=== PATIENT | male | born 1935 | race Caucasian/White ===

== ENCOUNTER 2018-06-26 12:32 | Inpatient (IN) | payer MEDICARE ==
[~2018-06-26] VITALS: Ht 172.7 cm; Wt 126.2 kg
[~2018-06-26 12:32] MED LIST: ABAT250V; ALBU90OI INH; AMIO200 PO; ASPI81CH PO; ATOR20 PO; ATROPINE 1%; Alphagan P 5ML5 ML BOTHEYES; Artificial Tear15 M6 BOTHEYES; Atropine Su0.1 MG/ML LEFTEYE; B-1100 MG PO; CLARITIN10 MG PO; CLOP75 PO; COUGHTAB200 MG PO; D3-20002000 UNIT PO; DAILY VALUE1 EACH PO; DEEP SEA44 ML; DOCU100 PO; DULO60 PO; ETOD400 PO; FISH1000; FLUT44OIA; FURO40 PO; Fish Oil 1,0001 EAC3 PO; Flonase 0.05% N16 GM; GAVILAX17 GM PO; GENTEAL TEARS S10 GM BOTHEYES; GLUCOSAMINE CH1 EAC1 PO; HYDACE10B PO; HYDHCL25 PO; HYDPAM25 PO; Hair, Skin & N1 EACH PO; KETO120T TOP; KETO15TC TOP; LATA.005SO BOTHEYES; LISI5 PO; LORA1SY PO; Lacri-Lube S.O3.5 GM BOTHEYES; MELA3 PO; MELATONIN10 M2 PO; METO50 PO; MIRT30 PO; MORP15ER PO; Morphine Sulfat15 MG PO; NAPR500 PO; OFLO.3OPSO LEFTEYE; OMEP20ER PO; OMEPRAZOLE MAGN20 MG PO; OXYACE5T PO; OXYC10ER PO; OXYC10TA19 PO; OXYM.05NI; Oxycodone HCl20 M1 PO; PIRO10 PO; POTA10T PO; POTCHL10ER PO; PRAZ1 PO; PRED1SU LEFTEYE; PYRI100 PO; SENN187 PO; TAMS.4ER PO; TIMO.5OPSO BOTHEYES; TRAZ50 PO; VENL150ER PO; VENL75ER PO; VITAMIN D35000 UNIT PO; Vancocin HCl125 MG; ZIOPTAN 0.00151 EACH OP; ZOLP10 PO; [UNRECOGNIZED DRUG - CODE]; [UNRECOGNIZED DRUG - CODE]; [UNRECOGNIZED DRUG - CODE] LEFTEYE; [UNRECOGNIZED DRUG - OTHER]
[2018-06-26 13:00] LABS: Calcium, Ionized (POC) 1.14 mmol/L (1.10-1.46); Chloride (POC) 105 mmol/L (98-108); Creatinine (POC) 0.9 mg/dL (0.8-1.3); Glucose (ISTAT POC) 158 mg/dL (70-99); Potassium (POC) 4.1 mmol/L (3.5-5.5); Sodium (POC) 141 mmol/L (135-148); Total CO2 (POC) 22 mmol/L (21-32)
[2018-06-26 13:12] LABS: BASOPHILS ABSOLUTE AUTO 0.11 K/mm3 (0.00-0.23); BASOPHILS PERCENT AUTO 1 % (0-2); EOSINOPHILS ABSOLUTE AUTO 0.63 K/mm3 (0.00-0.68); EOSINOPHILS PERCENT AUTO 5 % (0-6); Hematocrit 45.1 % (37.0-53.0); Hemoglobin 14.8 g/dL (13.5-17.5); IMMATURE GRAN ABSOLUTE AUTO 0.13 K/mm3 (0.00-0.10); IMMATURE GRAN PERCENT AUTO 1 % (0-1); LYMPHOCYTES ABSOLUTE AUTO 2.24 K/mm3 (0.84-5.20); LYMPHOCYTES PERCENT AUTO 18 % (21-46); MONOCYTES ABSOLUTE AUTO 0.83 K/mm3 (0.16-1.47); MONOCYTES PERCENT AUTO 7 % (4-13); Mean Corpuscular HGB 30.6 pg (26.0-34.0); Mean Corpuscular HGB Conc 32.8 g/dL (31.5-36.5); Mean Corpuscular Volume 93 fL (80-100); Mean Platelet Volume 9.7 fL (9.1-12.4); NEUTROPHILS ABSOLUTE AUTO 8.71 K/mm3 (1.96-9.15); NEUTROPHILS PERCENT AUTO 69 % (41-73); Platelet Count 196 K/mm3 (150-400); RDW Coefficient Variation 12.4 % (11.7-14.2); RDW Standard Deviation 42.9 fL (35.1-46.3); Red Blood Cell Count 4.84 M/mm3 (4.30-5.90); White Blood Cell Count 12.65 K/mm3 (4.00-11.30)
[2018-06-26 13:13] LABS: Alanine Aminotransfer (ALT/SGP 11 U/L (12-78); Albumin, Blood 3.6 g/dL (3.4-5.0); Albumin/Globulin Ratio 0.9 (0.8-1.8); Alk Phos 89 U/L (50-136); Anion Gap 8 mmol/L (6-16); Aspartate Aminotrans (AST/SGOT 19 U/L (12-37); Blood Urea Nitrogen 16 mg/dL (8-24); Bun/Creatinine Ratio 16.7 (12.0-20.0); CO2, Blood 25 mmol/L (21-32); Calcium, Blood 8.9 mg/dL (8.5-10.1); Chloride, Blood 108 mmol/L (98-108); Creatinine, Blood 0.96 mg/dL (0.60-1.20); Globulin, Blood 4.2 g/dL (2.2-4.0); Glomerular Filtration Rate >60 (60-); Glucose, Blood 154 mg/dL (70-99); Potassium, Blood 4.2 mmol/L (3.5-5.5); Sodium, Blood 141 mmol/L (136-145); Total Protein, Blood 7.8 g/dL (6.4-8.2)
[2018-06-26 16:18] LABS: International Normalized Ratio 0.98; Prothrombin Time Results 10.4 Sec (9.7-11.5)
--- NOTE | 2018-06-26 16:47 | NUR ---
NURSING PCU DAYSHIFT: Assumed care of pt at approx 1545. Arrived from ER via gurney accompanied by RN. Xfer w/SBA to unit bed. Denies any pain/discomfort. Skin is fragile w/no breakdown noted. LE's are cool, good cap refill, c/o BLE numbness/tingling. Tele in place, NSR w/first degree and BBB, occ PVC's, no c/o CP/pressure, HTN, no noted edema. L/S w/scattered I/E wheezes t/o, coarse in the upper lobes, respirations regular, O2 sat stable on RA, occ cough producing thick/white sputum. Abd SNT, BT+, voiding w/o difficulty per pt. PIV x2, amiodarone gtt infusing at 33.3mls/hr (1mg/kg/min). No s/s of acute distress at this time. Pt currently sitting on edge of bed speaking w/yarn salvager. Orders reviewed, hep gtt to be initiated. Call light remains in reach, cont to monitor until rpt is given to NOC RN.
[2018-06-26] MEDS ORDERED: DORZOLAMIDE-TI1 EACH BOTHEYES (16:56)
[2018-06-26] MEDS ORDERED: LIDOCAINE1 EACH TOP (17:05)
[2018-06-26] MEDS ORDERED: DESENEX43 GM TOP (17:08)
[2018-06-26] MEDS ORDERED: ZINC15 PO (17:09)
[2018-06-26] MEDS ORDERED: OXYM.05NI (17:12)
[2018-06-26] MEDS ORDERED: Percocet 5-3251 EACH PO (17:15)
[2018-06-26] MEDS ORDERED: GAVILAX17 GM PO (17:17)
[2018-06-26] MEDS ORDERED: PSEU120ER PO (17:19)
[2018-06-26] MEDS ORDERED: ASPERCREME1 EACH TOP (17:27)
[2018-06-26] MEDS ORDERED: ZIOPTAN 0.00151 EACH BOTHEYES (17:30)
[2018-06-26 19:07] LABS: Creatine Kinase MB Index 2.8 (0.0-4.0); Troponin I 0.309 ng/mL (0.000-0.040)
--- NOTE | 2018-06-26 20:14 | NUR ---
ASSUMED CARE - NOC SHIFT Patient verbalizes that [facility] and was brought into [facility] today because the [facility] is 'slacking' on being able to care for his cardiac condition. Patient alert and oriented. Patient sitting up on side of unit bed. L/S clear to wheeze and coarseness ausculated in bilateral bases. Resp E/U on room air. Patient has occassional cough. Patient reports left shoulder pain from laying on arm and trying to keep is strait due to IV 'beeping'. Patient medicated per EMAR. Patient denies any chest pain at this time. HR remains NSR with 1 degree & BBB in the 80's. No acute distress noted. Patient hypertensive - medicated per EMAR. Patient states he has already had PNA vaccination and refuses at this time - will clear from orders. Amniodoroen infusing at 16.7 mls/hr; heparin at 23.4 ml/hr and NS running at 150ml/hr per EMAR. Will continue to monitor.
--- NOTE | 2018-06-26 22:25 | NUR ---
PATIENT REQUESTED CPAP APPLIED - APPLIED CPAP. PATIENT CURRENTLY SLEEPING WITH CPAP AND CONTINOUS BIOX IN PLACE.
[2018-06-27 01:12] LABS: Creatine Kinase MB 1.8 ng/mL (0.0-3.6); Creatine Kinase MB Index 1.2 (0.0-4.0); Troponin I 0.357 ng/mL (0.000-0.040)
[2018-06-27 04:03] LABS: BASOPHILS PERCENT AUTO 1 % (0-2); EOSINOPHILS ABSOLUTE AUTO 1.15 K/mm3 (0.00-0.68); EOSINOPHILS PERCENT AUTO 12 % (0-6); Hematocrit 39.2 % (37.0-53.0); IMMATURE GRAN ABSOLUTE AUTO 0.12 K/mm3 (0.00-0.10); IMMATURE GRAN PERCENT AUTO 1 % (0-1); LYMPHOCYTES ABSOLUTE AUTO 2.31 K/mm3 (0.84-5.20); LYMPHOCYTES PERCENT AUTO 25 % (21-46); MONOCYTES ABSOLUTE AUTO 0.74 K/mm3 (0.16-1.47); MONOCYTES PERCENT AUTO 8 % (4-13); Mean Corpuscular HGB 31.3 pg (26.0-34.0); Mean Corpuscular HGB Conc 33.2 g/dL (31.5-36.5); Mean Corpuscular Volume 94 fL (80-100); Mean Platelet Volume 9.7 fL (9.1-12.4); NEUTROPHILS ABSOLUTE AUTO 4.99 K/mm3 (1.96-9.15); NEUTROPHILS PERCENT AUTO 53 % (41-73); Platelet Count 184 K/mm3 (150-400); RDW Coefficient Variation 12.5 % (11.7-14.2); RDW Standard Deviation 43.5 fL (35.1-46.3); Red Blood Cell Count 4.16 M/mm3 (4.30-5.90); White Blood Cell Count 9.41 K/mm3 (4.00-11.30)
[2018-06-27 04:24] LABS: Alanine Aminotransfer (ALT/SGP 10 U/L (12-78); Albumin, Blood 2.8 g/dL (3.4-5.0); Albumin/Globulin Ratio 0.8 (0.8-1.8); Alk Phos 71 U/L (50-136); Anion Gap 7 mmol/L (6-16); Aspartate Aminotrans (AST/SGOT 23 U/L (12-37); Bilirubin, Total 0.9 mg/dL (0.1-1.0); Blood Urea Nitrogen 16 mg/dL (8-24); Bun/Creatinine Ratio 20.5 (12.0-20.0); CO2, Blood 24 mmol/L (21-32); Calcium, Blood 8.1 mg/dL (8.5-10.1); Chloride, Blood 110 mmol/L (98-108); Cholesterol 86 mg/dL (50-200); Creatinine, Blood 0.78 mg/dL (0.60-1.20); Globulin, Blood 3.6 g/dL (2.2-4.0); Glomerular Filtration Rate >60 (60-); Glucose, Blood 106 mg/dL (70-99); Potassium, Blood 4.2 mmol/L (3.5-5.5); Sodium, Blood 141 mmol/L (136-145); Total Protein, Blood 6.4 g/dL (6.4-8.2); Triglycerides 85 mg/dL (30-160)
--- NOTE | 2018-06-27 05:45 | NUR ---
PCU NOC SHIFT SUMMARY PATIENT REMAINED ALERT AND ORIENTED TO SELF, T/O SHIFT - CONFUSED TO LOCATION AT TIMES-REORIENTED PRN. PATIENT PULLED IV AND CARDIAC LEADS OFF ONE TIME LAST NIGHT - NEW IV STARTED. AMNIO, HEP & NS CONTINUED T/O SHIFT PER EMAR. PATIENT REPORTED THAT HE'S HAD MULTIPLE FALLS AT HOME. LEFT ARM, SHOULDER, ELBOW AND WRIST NOTED TO BE SWOLLEN AND PAINFUL WITH MOVEMENT OR TOUCH. PATIENT SLEPT FOR APPROX 4 HOURS DURING THE SHIFT. TOOK MEDICATIONS WELL WITH WATER. PATIENT KEPT NPO AFTER MIDNIGHT PENDING POSSIBLE ANGIOGRAM THIS AM. PATIENT DENIED ANY CHEST PAIN T/O SHIFT AND REMAINED SINUS TO SINUS RICK WITH 1ST DEGREE AND BBB. NO ACUTE CHANGES NOTED. PATIENT HYPERTENSIVE T/O SHIFT AND NOTED THAT TROPONIN REMAINS ELEVATED. WILL CONTINUE TO MONITOR AND REPORT OFF TO DAYSHIFT RN.
--- NOTE | 2018-06-27 05:56 | NUR ---
CHARGE NURSE TOOK PATIENTS HOME MEDICATIONS TO PHARMACY
--- NOTE | 2018-06-27 08:00 | NUR ---
PT PLEASANT COOP A/O DENIES ALL EXCEPT GENERALIZED PAIN 07/13. H/R REG, NO MURMER NOTED. PER TELE: SINUS RICK AT 59. WITH BBB. BT X4 . LAST BM NOTKNOWN BY PT. VOIDS URINAL. SBA TO BSC. BED IN LWO POSITION, CALL LITE IN REACH,C ALLS APPROP
--- NOTE | 2018-06-27 09:40 | NUR ---
PT GOING TO [facility].. NOW.
--- NOTE | 2018-06-27 10:06 | NUR ---
0900: PER DR LITTLEJOHN. STOP HEPARIN. DONE
--- NOTE | 2018-06-27 11:00 | NUR ---
DR LITTLEJOHN CALLED STOP HEPARIN, DONE.
--- NOTE | 2018-06-27 11:30 | NUR ---
PT RETURNED TO ROOM. Kaci GURROLA/Alejandra RN STATES AMIODORONE AND IVF STOPPED. L RADIAL ACCESS. 12 CC AIR REPORTED TO KEEP FROM BLEEDING. BLOOD AROUND TR BAND NOTED. 1 MM HOLE ACCESSPOINT NOTED UNDER BAND. NO CURRENT BLEEDING NOTED. NO HEMATOMA PROXIMAL TO BAND NOTED. NO BRUIDING. TENDERNESS. PT STATES SOME PAIN ON LEFT ARM TO SHOULDER FROM PRIOR INJURY. PT VERBALIZED NO DISCOMFORT IN HAND, FEELING NOTED IN ALL FINGERS, REPORTS NO NUMBNESS NOTED. CAP REFILL <3 SEC. FOLLOW. VSS.
--- NOTE | 2018-06-27 12:04 | NUR ---
I entered room to find patient resting in bed with his eyes shut. He opened his eyes quickly at the sound of his name. Patient said that he was very tired and had an annoying cough. I asked patient about his current concerns and he referred back to his annoying cough. I facilitated a family/life review, explored patient's belief system and provided prayer. I provided a brief visit because patient was nodding off. Patient thanked me for the visit and showed signs of continued peace.
--- NOTE | 2018-06-27 13:05 | NUR ---
DR LITTLEJOHN CALLED WILL WRITE ORDERS/ OKAY STOP IVF.
--- NOTE | 2018-06-27 15:29 | NUR ---
PT C/O PAIN, CALLED DR FOR MED REQUEST. OKAYED PERCOCET 5/325 Q6P ORAL
--- NOTE | 2018-06-27 16:13 | NUR ---
1330 2 HRS POST ANGIO. STARTED TAKING AIR FROM TR BAND. NO LEAKING NOTED. NO FRESH BLEEDING, NO HEMATOMA NOTED. 1600 9 CC AIR OUT SO FAR. NO BLELEDING NOTED. NO HEMATOMA NOTED. OLD DRIED BLOOD ABOUT SAME AROUND TR BAND. PT CONTINUES TO HAVE FEELING IN HANDS. NOW WARM. NO OTHER CONCERNS AT THIS TIME.
--- NOTE | 2018-06-27 18:30 | NUR ---
1700 TR BAND FULLY UNINFLATED. NO BLEEDING NOTED. NO HEMATOMA. PT VERBALIZED FEELING IN ALL EXT. LEAVE ON 1 HR AND CONTINUE MONITOR 1815 TR BAND REMOVED. CLEANED SITE, PLACED TEGADERM CLEAR DSG OVER SITE. NO BELEEDING NOTED. NO BRUISING NOTED. LIGHT PUFFINESS NOTED AFTER BAND OFF. QHITE ARM BOARD REPLACED AFTER CLEANING ARM. ADVISED PT NO LIFTING, PULLING, PUSHING TODAY.
--- NOTE | 2018-06-27 18:34 | NUR ---
PT PLEASANT TODAY. DID ANGIO THIS AM. BACK FROM H/C 1130. NO STENTS PLACED. ARM BAND REMOVED AT 181. NO BLEEDING NOTED. TEGADERM PLACED AND PT ADVISED NO MOVEMENT, PUSHING, PULLING LIFTING. PT VERBALIZED UNDERSTANDING. WHITE ARM BOARD IN PLACE. VSS/ NO OTHER CONCERNS AT THIS TIME. BED IN LOW POSITION,C ALL LITE IN REACH, CALLS APPROP
--- NOTE | 2018-06-27 21:27 | NUR ---
ASSUMED CARE - PCU NOC SHIFT PATIENT ALERT AND ORIENTED TO SELF, LOCATION AND DATE OF . PATIENT CONFUSED TO CORDS/LINES AND SITUATIONS AT TIMES -REORIENTS AND REDIRECTS EASILY. LEFT WRIST RADIAL SITE NOTED - NO HEMATOMA OR BLEEDING. TEGARDERM DRESSING IN PLACE C/D/I, ARM BOARD IN PLACE & PATIENT EDUCATED TO ARM BOARD POST PCI INSTRUCTIONS. PATIENT GIVEN BATH AT BEDSIDE IN CHAIR. YEAST NOTED IN GROIN, UNDER ABDOMIN FOLD AND UNDER ARM PITS - CLEANED, DRYED AND NYSTATIN APPLIED LIBERALLY. RESP E/U AT REST; DYSPNEA NOTED UPON EXCERTION - PATIENT REMAINS ON ROOM AIR. PATIENTS HR SINUS TO SINUS RICK WITH FIRST DEGREE BBB IN THE 50-60'S. VSS. NO ACUTE DISTRESS NOTED AND PATIENT DENIES ANY CHEST PAIN OR PRESSURE. [facility]
[2018-06-28 03:59] LABS: BASOPHILS ABSOLUTE AUTO 0.09 K/mm3 (0.00-0.23); BASOPHILS PERCENT AUTO 1 % (0-2); EOSINOPHILS ABSOLUTE AUTO 1.01 K/mm3 (0.00-0.68); EOSINOPHILS PERCENT AUTO 11 % (0-6); Hematocrit 39.3 % (37.0-53.0); Hemoglobin 13.1 g/dL (13.5-17.5); IMMATURE GRAN ABSOLUTE AUTO 0.11 K/mm3 (0.00-0.10); IMMATURE GRAN PERCENT AUTO 1 % (0-1); LYMPHOCYTES ABSOLUTE AUTO 2.17 K/mm3 (0.84-5.20); LYMPHOCYTES PERCENT AUTO 24 % (21-46); MONOCYTES ABSOLUTE AUTO 0.69 K/mm3 (0.16-1.47); MONOCYTES PERCENT AUTO 8 % (4-13); Mean Corpuscular HGB 30.8 pg (26.0-34.0); Mean Corpuscular HGB Conc 33.3 g/dL (31.5-36.5); Mean Corpuscular Volume 93 fL (80-100); Mean Platelet Volume 9.5 fL (9.1-12.4); NEUTROPHILS ABSOLUTE AUTO 5.05 K/mm3 (1.96-9.15); NEUTROPHILS PERCENT AUTO 55 % (41-73); Platelet Count 201 K/mm3 (150-400); RDW Coefficient Variation 12.7 % (11.7-14.2); RDW Standard Deviation 43.4 fL (35.1-46.3); Red Blood Cell Count 4.25 M/mm3 (4.30-5.90); White Blood Cell Count 9.12 K/mm3 (4.00-11.30)
[2018-06-28 04:19] LABS: Anion Gap 7 mmol/L (6-16); Blood Urea Nitrogen 12 mg/dL (8-24); Bun/Creatinine Ratio 16.1 (12.0-20.0); CO2, Blood 24 mmol/L (21-32); Calcium, Blood 8.6 mg/dL (8.5-10.1); Chloride, Blood 110 mmol/L (98-108); Creatinine, Blood 0.74 mg/dL (0.60-1.20); Glomerular Filtration Rate >60 (60-); Glucose, Blood 95 mg/dL (70-99); Phosphorus, Blood 3.4 mg/dL (2.5-4.9); Potassium, Blood 4.5 mmol/L (3.5-5.5); Sodium, Blood 141 mmol/L (136-145); Troponin I 0.179 ng/mL (0.000-0.040)
--- NOTE | 2018-06-28 05:50 | NUR ---
PCU NOC SHIFT SUMMARY PATIENT ALERT AND ORIENTED TO SELF T/O SHIFT. REORIENTED TO SITUATION, UNIT AND TIME/DATE PRN. PATIENT COOPERATIVE WITH CARE. RESP E/U ON ROOM AIR AT REST. NO CARDIAC EVENTS NOTED T/O SHIFT. PATIENT STAND BY ASSIST TO BEDSIDE COMMODE FOR BATHROOM. CALL LIGHT W/I REACH AND BED ALARM ON. WILL CONTINUE TO MONITOR UNTIL REPORT IS GIVEN TO DAYSHIFT RN.
--- NOTE | 2018-06-28 08:00 | NUR ---
PT PLEASANT COOP A/O. SOME ANXIOUS. FOLLOWS COMMANDS. PAIN GENERAL 08/10 WILL MED PER EMAR. H/R REG, NO MURMER NOTED. PER TELE: NSR WITH BBB, RATE 60. LUNGS CLEAR, RESP EASY, UNLABORED. ON R/A. BT X4 LAST BM YEST. VOIDS PER URINAL. SBA ASST TO BATHROOM. BED IN LOW POSITION, CALL LITE IN REACH,CALLS APPPROP
[2018-06-28] MEDS ORDERED: Amiodarone HCl400 MG PO (09:33)
[2018-06-28] MEDS ORDERED: ASPI81CH PO (09:35)
[2018-06-28] MEDS ORDERED: NITR.4SL SL (09:36)
--- NOTE | 2018-06-28 10:46 | NUR ---
OUT WITH [facility]. 1040
--- NOTE | 2018-06-28 10:46 | NUR ---
DISCHARGE REVIEWED WITH PT PT VERBALIZED UNDERSTANDING. IV X2 PULLED IN TACT TELE REMMOVED. PEFNDING RIDE FROM [place].
== END 2018-06-28 10:49 | disposition home or self-care (01) | DRG 287 ==
LOC: ER 12:32 → PCU 12:33
PROVIDERS: Emergency Medicine; ADMIT Family Medicine
PROC: B2111ZZ Fluoroscopy of Multiple Coronary Arteries using Low Osmolar Contrast (ICD-10-PCS; principal; 2018-06-27)
DX: I47.2 Ventricular tachycardia (principal); I25.10 Atherosclerotic heart disease of native coronary artery without angina pectoris; Z95.810 Presence of automatic (implantable) cardiac defibrillator; N40.0 Benign prostatic hyperplasia without lower urinary tract symptoms; G47.33 Obstructive sleep apnea (adult) (pediatric); Z95.1 Presence of aortocoronary bypass graft; Z79.82 Long term (current) use of aspirin; G47.00 Insomnia, unspecified; H40.9 Unspecified glaucoma; R73.9 Hyperglycemia, unspecified; I25.5 Ischemic cardiomyopathy; E66.9 Obesity, unspecified; Z68.39 Body mass index [BMI] 39.0-39.9, adult; M19.90 Unspecified osteoarthritis, unspecified site; Z87.891 Personal history of nicotine dependence
CPT/HCPCS: 36415; 36416; 71045; 80047; 80053; 80069; 82465; 82550; 82553; 82947; 83036; 83735; 83880; 84145; 84443; 84478; 84484; 85014; 85025; 85610; 85730; 93005; 93010; 93306; 93459; 94660; 94762; 96361; 96374; 96375; 96376; 99152; 99153; 99285-25; C1769; C1894; C9113; G0378; J0282; J1644; J2250; J3010; J7030; J7060; Q9967

== ENCOUNTER 2020-02-23 17:45 | Emergency (ER) | payer OTHER ==
[~2020-02-23] VITALS: Ht 175.3 cm; Wt 113.4 kg
[~2020-02-23 17:45] MED LIST changes: +ASPERCREME1 EACH TOP; +Amiodarone HCl400 MG PO; +DESENEX43 GM TOP; +DORZOLAMIDE-TI1 EACH BOTHEYES; +LIDOCAINE1 EACH TOP; +NITR.4SL SL; +PSEU120ER PO; +Percocet 5-3251 EACH PO; +ZINC15 PO; +ZIOPTAN 0.00151 EACH BOTHEYES
[2020-02-23 18:19] LABS: BASOPHILS ABSOLUTE AUTO 0.05 K/mm3 (0.00-0.23); BASOPHILS PERCENT AUTO 1 % (0-2); EOSINOPHILS ABSOLUTE AUTO 0.19 K/mm3 (0.00-0.68); EOSINOPHILS PERCENT AUTO 2 % (0-6); Hematocrit 44.1 % (37.0-53.0); Hemoglobin 14.8 g/dL (13.5-17.5); IMMATURE GRAN ABSOLUTE AUTO 0.07 K/mm3 (0.00-0.10); IMMATURE GRAN PERCENT AUTO 1 % (0-1); LYMPHOCYTES ABSOLUTE AUTO 2.05 K/mm3 (0.84-5.20); LYMPHOCYTES PERCENT AUTO 26 % (21-46); MONOCYTES ABSOLUTE AUTO 0.61 K/mm3 (0.16-1.47); MONOCYTES PERCENT AUTO 8 % (4-13); Mean Corpuscular HGB 32.7 pg (26.0-34.0); Mean Corpuscular HGB Conc 33.6 g/dL (31.5-36.5); Mean Corpuscular Volume 98 fL (80-100); Mean Platelet Volume 9.7 fL (9.1-12.4); NEUTROPHILS ABSOLUTE AUTO 4.88 K/mm3 (1.96-9.15); NEUTROPHILS PERCENT AUTO 62 % (41-73); Platelet Count 156 K/mm3 (150-400); RDW Coefficient Variation 13.7 % (11.7-14.2); RDW Standard Deviation 49.6 fL (35.1-46.3); Red Blood Cell Count 4.52 M/mm3 (4.30-5.90); White Blood Cell Count 7.85 K/mm3 (4.00-11.30)
[2020-02-23 18:38] LABS: Magnesium, Blood 2.4 mg/dL (1.6-2.4); Troponin I <0.015 ng/mL (0.000-0.040)
[2020-02-23 18:49] LABS: Alanine Aminotransfer (ALT/SGP 16 U/L (12-78); Albumin, Blood 3.7 g/dL (3.4-5.0); Albumin/Globulin Ratio 1.1 (0.8-1.8); Alk Phos 73 U/L (50-136); Anion Gap 5 mmol/L (6-16); Aspartate Aminotrans (AST/SGOT 14 U/L (12-37); Bilirubin, Total 0.8 mg/dL (0.1-1.0); Blood Urea Nitrogen 19 mg/dL (8-24); Bun/Creatinine Ratio 27.6 (12.0-20.0); CO2, Blood 25 mmol/L (21-32); Calcium, Blood 9.1 mg/dL (8.5-10.1); Chloride, Blood 112 mmol/L (98-108); Creatinine, Blood 0.69 mg/dL (0.60-1.20); Globulin, Blood 3.5 g/dL (2.2-4.0); Glomerular Filtration Rate >60 (60-); Glucose, Blood 93 mg/dL (70-99); Potassium, Blood 4.5 mmol/L (3.5-5.5); Sodium, Blood 142 mmol/L (136-145); Total Protein, Blood 7.2 g/dL (6.4-8.2)
== END 2020-02-23 19:57 | disposition home or self-care (01) ==
LOC: ER 17:45
PROVIDERS: Emergency Medicine
DX: R42 Dizziness and giddiness (principal); I11.0 Hypertensive heart disease with heart failure; I50.9 Heart failure, unspecified; N40.0 Benign prostatic hyperplasia without lower urinary tract symptoms; Z95.0 Presence of cardiac pacemaker; Z88.5 Allergy status to narcotic agent; Z88.8 Allergy status to other drugs, medicaments and biological substances; Z79.899 Other long term (current) drug therapy; Z79.82 Long term (current) use of aspirin; Z95.1 Presence of aortocoronary bypass graft; Z87.891 Personal history of nicotine dependence
CPT/HCPCS: 36415; 71045; 80053; 83735; 84484; 85025; 93005; 93010; 99285-25

== ENCOUNTER 2020-02-29 20:39 | Emergency (ER) | payer OTHER ==
[~2020-02-29] VITALS: Ht 167.6 cm; Wt 90.7 kg
[2020-02-29 21:37] LABS: BASOPHILS ABSOLUTE AUTO 0.04 K/mm3 (0.00-0.23); BASOPHILS PERCENT AUTO 1 % (0-2); EOSINOPHILS ABSOLUTE AUTO 0.24 K/mm3 (0.00-0.68); EOSINOPHILS PERCENT AUTO 3 % (0-6); Hematocrit 44.3 % (37.0-53.0); IMMATURE GRAN ABSOLUTE AUTO 0.06 K/mm3 (0.00-0.10); IMMATURE GRAN PERCENT AUTO 1 % (0-1); LYMPHOCYTES ABSOLUTE AUTO 2.06 K/mm3 (0.84-5.20); LYMPHOCYTES PERCENT AUTO 24 % (21-46); MONOCYTES ABSOLUTE AUTO 0.75 K/mm3 (0.16-1.47); MONOCYTES PERCENT AUTO 9 % (4-13); Mean Corpuscular HGB 32.8 pg (26.0-34.0); Mean Corpuscular HGB Conc 33.9 g/dL (31.5-36.5); Mean Corpuscular Volume 97 fL (80-100); Mean Platelet Volume 9.5 fL (9.1-12.4); NEUTROPHILS PERCENT AUTO 63 % (41-73); Platelet Count 199 K/mm3 (150-400); RDW Coefficient Variation 13.6 % (11.7-14.2); RDW Standard Deviation 48.5 fL (35.1-46.3); Red Blood Cell Count 4.58 M/mm3 (4.30-5.90); White Blood Cell Count 8.55 K/mm3 (4.00-11.30)
[2020-02-29 21:50] LABS: Alanine Aminotransfer (ALT/SGP 13 U/L (12-78); Albumin, Blood 3.9 g/dL (3.4-5.0); Albumin/Globulin Ratio 1.2 (0.8-1.8); Alk Phos 74 U/L (50-136); Anion Gap 8 mmol/L (6-16); Aspartate Aminotrans (AST/SGOT 14 U/L (12-37); Bilirubin, Total 0.7 mg/dL (0.1-1.0); Blood Urea Nitrogen 24 mg/dL (8-24); Bun/Creatinine Ratio 31.5 (12.0-20.0); CO2, Blood 21 mmol/L (21-32); Calcium, Blood 9.1 mg/dL (8.5-10.1); Chloride, Blood 113 mmol/L (98-108); Creatinine, Blood 0.76 mg/dL (0.60-1.20); Globulin, Blood 3.3 g/dL (2.2-4.0); Glomerular Filtration Rate >60 (60-); Glucose, Blood 119 mg/dL (70-99); Potassium, Blood 4.2 mmol/L (3.5-5.5); Sodium, Blood 142 mmol/L (136-145); Total Protein, Blood 7.2 g/dL (6.4-8.2)
[2020-02-29 22:01] LABS: Ethanol (Alcohol), Blood, Med <3 mg/dL
[2020-02-29 22:35] LABS: Troponin I <0.015 ng/mL (0.000-0.040)
== END 2020-03-01 00:19 | disposition home or self-care (01) ==
LOC: ER 20:39
PROVIDERS: Emergency Medicine
DX: S00.31XA Abrasion of nose, initial encounter (principal); T50.901A Poisoning by unspecified drugs, medicaments and biological substances, accidental (unintentional), initial encounter; R41.0 Disorientation, unspecified; I11.0 Hypertensive heart disease with heart failure; I50.9 Heart failure, unspecified; N40.0 Benign prostatic hyperplasia without lower urinary tract symptoms; Z88.5 Allergy status to narcotic agent; Z88.8 Allergy status to other drugs, medicaments and biological substances; Z79.899 Other long term (current) drug therapy; Z79.82 Long term (current) use of aspirin; Z95.1 Presence of aortocoronary bypass graft; Z95.810 Presence of automatic (implantable) cardiac defibrillator; Z87.891 Personal history of nicotine dependence; W18.30XA Fall on same level, unspecified, initial encounter
CPT/HCPCS: 70450; 72125; 80053; 84484; 85025; 93005; 93010; 99285-25; G0480

== ENCOUNTER 2020-08-04 00:06 | Emergency (ER) | payer MEDICARE, OTHER ==
[~2020-08-04] VITALS: Ht 172.7 cm; Wt 117.9 kg
[2020-08-04 01:54] LABS: BASOPHILS ABSOLUTE AUTO 0.06 K/mm3 (0.00-0.23); BASOPHILS PERCENT AUTO 1 % (0-2); EOSINOPHILS ABSOLUTE AUTO 0.37 K/mm3 (0.00-0.68); EOSINOPHILS PERCENT AUTO 5 % (0-6); IMMATURE GRAN ABSOLUTE AUTO 0.08 K/mm3 (0.00-0.10); IMMATURE GRAN PERCENT AUTO 1 % (0-1); LYMPHOCYTES ABSOLUTE AUTO 2.29 K/mm3 (0.84-5.20); LYMPHOCYTES PERCENT AUTO 33 % (21-46); MONOCYTES ABSOLUTE AUTO 0.68 K/mm3 (0.16-1.47); MONOCYTES PERCENT AUTO 10 % (4-13); Mean Corpuscular HGB 32.3 pg (26.0-34.0); Mean Corpuscular HGB Conc 33.3 g/dL (31.5-36.5); Mean Corpuscular Volume 97 fL (80-100); Mean Platelet Volume 9.6 fL (9.1-12.4); NEUTROPHILS ABSOLUTE AUTO 3.43 K/mm3 (1.96-9.15); NEUTROPHILS PERCENT AUTO 50 % (41-73); Platelet Count 160 K/mm3 (150-400); RDW Coefficient Variation 14.1 % (11.7-14.2); RDW Standard Deviation 50.1 fL (35.1-46.3); Red Blood Cell Count 4.03 M/mm3 (4.30-5.90); White Blood Cell Count 6.91 K/mm3 (4.00-11.30)
[2020-08-04 02:09] LABS: Alanine Aminotransfer (ALT/SGP 27 U/L (12-78); Albumin, Blood 3.3 g/dL (3.4-5.0); Albumin/Globulin Ratio 1.1 (0.8-1.8); Alk Phos 76 U/L (50-136); Anion Gap 3 mmol/L (6-16); Aspartate Aminotrans (AST/SGOT 19 U/L (12-37); Bilirubin, Total 0.5 mg/dL (0.1-1.0); Blood Urea Nitrogen 22 mg/dL (8-24); CO2, Blood 29 mmol/L (21-32); Calcium, Blood 8.5 mg/dL (8.5-10.1); Chloride, Blood 110 mmol/L (98-108); Creatinine, Blood 0.79 mg/dL (0.60-1.20); Globulin, Blood 3.1 g/dL (2.2-4.0); Glomerular Filtration Rate >60 (60-); Glucose, Blood 85 mg/dL (70-99); Potassium, Blood 4.4 mmol/L (3.5-5.5); Sodium, Blood 142 mmol/L (136-145); Total Protein, Blood 6.4 g/dL (6.4-8.2); Troponin I <0.015 ng/mL (0.000-0.040)
[2020-09-13] MEDS ORDERED: Roxicodone5 MG PO (22:06)
[2020-09-13] MEDS ORDERED: Colace250 MG PO (22:06)
[2020-09-14] MEDS ORDERED: AMLO5 PO (13:15)
[2020-09-14] MEDS ORDERED: ACET500 PO ×2 (13:15→20:39)
[2020-09-14] MEDS ORDERED: TIMDOROPSO BOTHEYES (13:16)
[2020-09-14] MEDS ORDERED: Voltaren100 GM TOP (13:16)
[2020-09-14] MEDS ORDERED: DOC250 (13:16)
[2020-09-14] MEDS ORDERED: Flonase 0.05% N16 GM (13:17)
[2020-09-14] MEDS ORDERED: DULO60 PO (13:17)
[2020-09-14] MEDS ORDERED: HYDHCL25 PO (13:18)
[2020-09-14] MEDS ORDERED: MELO7.5 PO (13:18)
[2020-09-14] MEDS ORDERED: MELA3 PO (13:18)
[2020-09-14] MEDS ORDERED: ANTIFUNGAL POWD71 GM TOP (13:19)
[2020-09-14] MEDS ORDERED: ZIOPTAN 0.00151 EACH BOTHEYES (13:20)
[2020-09-14] MEDS ORDERED: TRAZ50 PO (13:21)
[2020-09-14] MEDS ORDERED: LOPE2C PO (20:40)
[2020-09-14] MEDS ORDERED: NYAMYC15 G1 TOP (20:42)
[2020-09-14] MEDS ORDERED: ZINC SULFATE50 MG PO (20:44)
[2020-09-14] MEDS ORDERED: NASAL SPRAY88 ML (20:44)
[2020-09-28] MEDS ORDERED: ASPI81CH PO (11:27)
[2020-09-28] MEDS ORDERED: FENTANYL1 EAC7 TOP (11:29)
[2020-09-28] MEDS ORDERED: FURO20 PO (11:30)
[2020-09-28] MEDS ORDERED: HYDMOR4 PO (11:30)
[2020-09-28] MEDS ORDERED: QUET100 PO (11:30)
[2020-09-28] MEDS ORDERED: Seroquel Xr50 MG PO (11:31)
[2020-09-28] MEDS ORDERED: SPIR25 PO (11:31)
[2020-09-28] MEDS ORDERED: TAMS.4ER PO (11:32)
== END 2020-08-04 07:02 | disposition home or self-care (01) ==
LOC: ER 00:06
PROVIDERS: Emergency Medicine
DX: S39.012A Strain of muscle, fascia and tendon of lower back, initial encounter (principal); S40.012A Contusion of left shoulder, initial encounter; S00.01XA Abrasion of scalp, initial encounter; I11.0 Hypertensive heart disease with heart failure; I50.9 Heart failure, unspecified; Z88.8 Allergy status to other drugs, medicaments and biological substances; Z88.5 Allergy status to narcotic agent; Z95.1 Presence of aortocoronary bypass graft; Z79.899 Other long term (current) drug therapy; Z87.891 Personal history of nicotine dependence; W01.10XA Fall on same level from slipping, tripping and stumbling with subsequent striking against unspecified object, initial encounter
CPT/HCPCS: 36415; 70450; 71045; 72100; 72125; 73030; 80053; 82947; 84484; 85025; 93005; 93010; 94640; 96374; 96375; 99284-25; J2405; J3010

== ENCOUNTER 2020-09-13 17:29 | Emergency (ER) | payer MEDICARE, OTHER ==
[~2020-09-13] VITALS: Ht 175.3 cm; Wt 136.1 kg
== END 2020-09-13 22:55 | disposition home or self-care (01) ==
LOC: ER 17:29
DX: S42.202A Unspecified fracture of upper end of left humerus, initial encounter for closed fracture (principal); S09.90XA Unspecified injury of head, initial encounter; I11.0 Hypertensive heart disease with heart failure; I50.9 Heart failure, unspecified; Z88.5 Allergy status to narcotic agent; Z79.899 Other long term (current) drug therapy; Z87.891 Personal history of nicotine dependence; W05.2XXA Fall from non-moving motorized mobility scooter, initial encounter
CPT/HCPCS: 70450; 71250; 72125; 73030; 73090; 73502; 73590; 80048; 85025; 90471; 90714; 96374; 96375; 96376; 99284-25; A9270; J2270; J2405